=== PATIENT | male | born 2005 | race Two or more races ===

== ENCOUNTER 2025-05-04 10:21 | Emergency (ER) | payer MEDICAID, OTHER ==
[~2025-05-04] VITALS: Ht 172.7 cm; Wt 74.3 kg
--- NOTE | 2025-05-04 10:55 | ED.PDOC ---
History of Present Illness HPI Comments 19-year-old male presents to the ER with no prior medical history associated to chief complaint of neck pain. Patient reports on having sharp pain to his neck radiating to the left shoulder for the past day. Patient states I possibly pulled some muscle. Patient states he cracked his neck a lot and thought maybe he might have strained something denies any actual injury. He works as a oil transport driver. Denies any numbness or tingling. Denies chills, fever, N/V/D, SOB, CP. Chief Complaint: Neck Pain Time Seen by MD: 10:55 Reviewed Notes: Nurses Notes, Medications, Allergies Allergies: Coded Allergies: NO KNOWN ALLERGIES (Unverified , 05/04/25) Information Source: Patient Mode of Arrival: Ambulatory Severity: Moderate Timing: Hours Duration: Since onset, Hours Prehospital treatment: None Past Medical History PAST MEDICAL HISTORY: Denies Surgical History: Denies all surgeries Family History Family History: Reviewed,noncontributory to illness, Unknown Social History Smoker: Non-Smoker Alcohol: Denies ETOH Use Drugs: Denies Drug Use Lives In: Home Constitutional: denies: chills, diaphoresis, fatigue, fever, malaise, sweats, weakness, others EENTM: denies: blurred vision, double vision, ear bleeding, ear discharge, ear drainage, ear pain, ear ringing, eye pain, eye redness, hearing loss, mouth pain, mouth swelling, nasal discharge, nose bleeding, nose congestion, nose pain, photophobia, tearing, throat pain, throat swelling, voice changes, others Respiratory: denies: cough, hemoptysis, orthopnea, SOB at rest, shortness of breath, SOB with excertion, stridor, wheezing, others Cardiovascular: denies: chest pain, dizzy spells, diaphoresis, Dyspnea on exertion, edema, irregular heart beat, left arm pain, lightheadedness, palpitations, PND, syncope, others Gastrointestinal: denies: abdomen distended, abdominal pain, blood streaked bowels, constipated, diarrhea, dysphagia, difficulty swallowing, hematemesis, melena, nausea, poor appetite, poor fluid intake, rectal bleeding, rectal pain, vomiting, others Genitourinary: denies: burning, dysuria, flank pain, frequency, hematuria, incontinence, penile discharge, penile sore, pain, testicle pain, testicle swelling, urgency, others Neurological: denies: dizziness, fainting, headache, left sided numbness, left sided weakness, numbness, paresthesia, pre-existing deficit, right sided numbness, right sided weakness, seizure, speech problems, tingling, tremors, weakness, others Musculoskeletal: reports: muscle pain, muscle stiffness, neck pain; denies: back pain, gout, joint pain, joint swelling, others Integumetry: denies: bruises, change in color, change in hair/nails, dryness, laceration, lesions, lumps, rash, wounds, others Allergic/Immunocompromised: denies: Difficulty Healing, Frequent Infections, Hives, Itching, others Hematologic/Lymphatic: denies: anemia, blood clots, easy bleeding, easy bruising, swollen glands, others Endocrine: denies: excessive hunger, excessive sweating, excessive thirst, excessive urination, flushing, intolerance to cold, intolerance to heat, unexplained weight gain, unexplained weight loss, others Psychiatric: denies: anxiety, bipolar disorder, depression, hopeless, panic disorder, schizophrenia, sleepless, suicidal, others All Other Systems: Reviewed and Negative Physical Exam General Appearance: No Apparent Distress, Normal HEENT: Normal ENT Inspection, Pharynx Normal, TMs Normal Neck: Limited Range of Motion, Normal, Normal Inspection, Tender Lateral, Other (Pain over the left paracervical muscles.) Respiratory: Chest Non-Tender, Lungs Clear, No Accessory Muscle Use, No Respiratory Distress, Normal Breath Sounds Cardiovascular: No Edema, No JVD, No Murmur, No Gallop, Normal Peripheral Pulses, Regular Rate/Rhythm Breast Exam: Deferred Gastrointestinal: No Organomegaly, Non Tender, No Pulsatile Mass, Normal Bowel Sounds, Soft Genitalia: Deferred Pelvic: Deferred Rectal: Deferred Extremities: No calf tenderness, Normal capillary refill, Normal inspection, Normal range of motion, Non-tender, No pedal edema Musculoskeletal : Apperance: Normal Neurologic: Alert, biometrics head II-XII nml as Tested, No Motor Deficits, Normal Affect, Normal Mood, No Sensory Deficits Cerebellar Function: Normal Reflexes: Normal Skin: Dry, Normal Color, Warm Lymphatic: No Adenopathy Was a procedure done? Was a procedure done?: No Differential Dx Considerations may include: Fracture versus slipped as X-Ray, Labs, Meds, VS Vital Signs Date Time Temp Pulse Resp B/P (MAP) Pulse Ox O2 Delivery O2 Flow Rate FiO2 05/04/25 10:22 98.6 65 15 120/55 96 98.6 X-Ray, Labs, Meds, VS Comment Patient seen and examined by me. Patient is having some muscle spasm on the left side of his cervical aspect of his neck. No injury no evidence or indication for x-rays or imaging. Patient will be given a shot of Toradol here and sent home with anti-inflammatories and a muscle relaxer I have also instructed him to use heat alternating with ice which will also help. He was advised that he can not use the muscle relaxer while at work.. Time of 1ST Reevaluation: 11:25 Reevaluation 1ST: Unchanged Time of 2ND Reevaluation: 12:08 Reevaluation 2ND: Improved Patient Education/Counseling: Diagnosis, Treatment, Prognosis Family Education/Counseling: No Family Present SEPSIS Sepsis Screen Date sepsis recognized/suspect: May 04, 2025 Time Sepsis recognized/suspect: 1024 Recent Procedure: No On Antibiotic Therapy: No Respiratory Rate >20: No Heart Rate >90: No Temp<36 C (96.8 F) or >38.3 C: No SBP <90 or MAP <65 mmHG: No New Acute Mental Status Change: No Is the patient on CPAP, BIPAP,: No Vital Signs Date Time Temp Pulse Resp B/P (MAP) Pulse Ox O2 Delivery O2 Flow Rate FiO2 05/04/25 10:22 98.6 65 15 120/55 96 98.6 Departure 1 Departure Time of Disposition: 12:30 Impression: Primary Impression: Cervical paraspinous muscle spasm Additional Impression: Spasm of cervical paraspinous muscle Disposition: 01 HOME / SELF CARE / HOMELESS Condition: Good Additional Instructions: Alternate heat and ice to your neck Try to stand against the wall and stretch out your back with good posture to help stretch those muscles Take the Motrin starting tomorrow to help with pain Okay to take the muscle relaxer but you can not drive with it e-Prescriptions Cyclobenzaprine Hcl (Cyclobenzaprine Hcl) 10 Mg Tab 10 MG PO BID for 5 Days, #10 TAB Prov: AJIT GODWIN DIETETICS PROFESSOR 05/04/25 Ibuprofen Micronized (Ibuprofen) 600 Mg Tab 600 MG PO Q6HPRN PRN for 5 Days, #20 TAB Prov: AJIT GODWIN 05/04/25 Discharged With: Self Critical Care Note Critical Care Time?: No Stability Stability form required: No I personally scribed for ER ([email or web address]) on 05/04/25 at 10:55. Electronically submitted by Matias Burris ([email or web address]). ER May 04, 2025 10:55 AJIT GODWIN DIETETICS PROFESSOR May 04, 2025 12:11
[2025-05-04] MEDS ORDERED: IBUP1TAB5 PO (12:11)
[2025-05-04] MEDS ORDERED: CYCL-839 PO (12:11)
[2025-05-04] MEDS: KETOROLAC TROMETH 60MG/2ML VIAL IM ONE (12:15)
[2025-05-04 12:25] VITALS: BP 122/63; PULSE 64; RESP 16; TEMP 98.1; O2SAT 96
== END 2025-05-04 12:51 | disposition home or self-care (01) ==
LOC: ER 10:21
DX: M62.830 Muscle spasm of back (principal); M62.838 Other muscle spasm; M25.512 Pain in left shoulder
CPT/HCPCS: 96372; 99283; J1885

== ENCOUNTER 2025-05-08 03:52 | Emergency (ER) | payer MEDICAID ==
[~2025-05-08] VITALS: Ht 177.8 cm; Wt 72.5 kg
[~2025-05-08 03:52] MED LIST: CYCL-839 PO; IBUP1TAB5 PO
[2025-05-08 04:29] LABS: Hematocrit 47.2 % (41.0-53.0); Hemoglobin 15.8 g/dL (13.5-17.5); Mean Corpuscular Hemoglobin 29.4 pg (28.0-32.0); Mean Corpuscular Volume 88.0 fL (80.0-100.0); Nucleated Red Blood Cells % 0.0 %
[2025-05-08 04:30] VITALS: BP 118/88; PULSE 65; RESP 16; TEMP 97.7; O2SAT 98
--- NOTE | 2025-05-08 04:34 | ED.PDOC ---
GI ASSESSMENT HPI Comments 19 year old male presents to the ED with a chief complaint of nausea/vomiting onset 1 day. Patient has been experiencing nausea/vomiting as well as epigastric pain and chills for the past day. Patient noticed symptoms worsened this morning, came to ED. Denies any PMHx as well as fever, diarrhea, dizziness, chest pain, shortness of breath, cough, cold, congestion, hematemesis, dysuria. No other symptoms or modifying factors present at this time. Chief Complaint: Nausea/Vomiting Time Seen by MD: 04:30 Reviewed Notes: Medications, Allergies Allergies: Coded Allergies: Amoxicillin (Verified Allergy, Unknown, 05/08/25) Home Meds Active Scripts Loperamide Hcl (Imodium) 2 Mg Cp, 2 MG PO Q6HP PRN, #30 CAP Prov:YOMI VARGAS MD 05/08/25 Ondansetron HCl (Ondansetron Hydrochloride) 8 Mg Tab, 8 MG PO Q6HP PRN, #30 TAB Prov:YOMI VARGAS MD 05/08/25 Cyclobenzaprine Hcl (Cyclobenzaprine Hcl) 10 Mg Tab, 10 MG PO BID for 5 Days, #10 TAB Prov:AJIT GODWINP 05/04/25 Ibuprofen Micronized (Ibuprofen) 600 Mg Tab, 600 MG PO Q6HPRN PRN for 5 Days, #20 TAB Prov:AJIT GODWIN MACHINE MAINTENANCE SERVICER 05/04/25 Information Source: Patient Mode of Arrival: Ambulatory Timing: Days Duration: Since onset Prehospital treatment: None Quality: Cramping Severity: Moderate Recent: None Recent Hx of: None Pain Location: Epigastric Modifying Factors: Nothing Associated sign and symptoms: Nausea, Vomiting, Abdominal Pain Past Medical History PAST MEDICAL HISTORY: Denies Surgical History: Denies all surgeries Family History Family History: Reviewed,noncontributory to illness, Unknown Social History Smoker: Non-Smoker Alcohol: Denies ETOH Use Drugs: Denies Drug Use Lives In: Home Constitutional: reports: chills; denies: diaphoresis, fatigue, fever, malaise, sweats, weakness, others EENTM: denies: blurred vision, double vision, ear bleeding, ear discharge, ear drainage, ear pain, ear ringing, eye pain, eye redness, hearing loss, mouth pain, mouth swelling, nasal discharge, nose bleeding, nose congestion, nose pain, photophobia, tearing, throat pain, throat swelling, voice changes, others Respiratory: denies: cough, hemoptysis, orthopnea, SOB at rest, shortness of breath, SOB with excertion, stridor, wheezing, others Cardiovascular: denies: chest pain, dizzy spells, diaphoresis, Dyspnea on exertion, edema, irregular heart beat, left arm pain, lightheadedness, palpitations, PND, syncope, others Gastrointestinal: reports: abdominal pain, nausea, vomiting; denies: abdomen distended, blood streaked bowels, constipated, diarrhea, dysphagia, difficulty swallowing, hematemesis, melena, poor appetite, poor fluid intake, rectal bleeding, rectal pain, others Genitourinary: denies: burning, dysuria, flank pain, frequency, hematuria, incontinence, penile discharge, penile sore, pain, testicle pain, testicle swelling, urgency, others Neurological: denies: dizziness, fainting, headache, left sided numbness, left sided weakness, numbness, paresthesia, pre-existing deficit, right sided numbness, right sided weakness, seizure, speech problems, tingling, tremors, weakness, others Musculoskeletal: denies: back pain, gout, joint pain, joint swelling, muscle pain, muscle stiffness, neck pain, others Integumetry: denies: bruises, change in color, change in hair/nails, dryness, laceration, lesions, lumps, rash, wounds, others Allergic/Immunocompromised: denies: Difficulty Healing, Frequent Infections, Hives, Itching, others Hematologic/Lymphatic: denies: anemia, blood clots, easy bleeding, easy bruising, swollen glands, others Endocrine: denies: excessive hunger, excessive sweating, excessive thirst, excessive urination, flushing, intolerance to cold, intolerance to heat, unexplained weight gain, unexplained weight loss, others Psychiatric: denies: anxiety, bipolar disorder, depression, hopeless, panic disorder, schizophrenia, sleepless, suicidal, others All Other Systems: Reviewed and Negative Physical Exam General Appearance: Normal HEENT: Normal ENT Inspection, Pharynx Normal, TMs Normal Neck: Full Range of Motion, Non-Tender, Normal, Normal Inspection Respiratory: Chest Non-Tender, Lungs Clear, No Accessory Muscle Use, No Respiratory Distress, Normal Breath Sounds Cardiovascular: No Edema, No JVD, No Murmur, No Gallop, Normal Peripheral Pulses, Regular Rate/Rhythm Breast Exam: Deferred Gastrointestinal: No Organomegaly, Non Tender, No Pulsatile Mass, Normal Bowel Sounds, Soft Genitalia: Deferred Pelvic: Deferred Rectal: Deferred Extremities: No calf tenderness, Normal capillary refill, Normal inspection, Normal range of motion, Non-tender, No pedal edema Musculoskeletal : Apperance: Normal Neurologic: Alert, business support specialist II-XII nml as Tested, No Motor Deficits, Normal Affect, Normal Mood, No Sensory Deficits Cerebellar Function: Normal Reflexes: Normal Skin: Dry, Normal Color, Warm Lymphatic: No Adenopathy Was a procedure done? Was a procedure done?: No GI differential Dx Differential Diagnosis: Appendicitis, Bowel Obstruction, Constipation, Diverticular disease, Gastritis/PUD, Gastroenteritis, Pancreatitis, Electrolyte Imbalance, Food Poisoning, Other X-Ray, Labs, Meds, VS Vital Signs Date Time Temp Pulse Resp B/P (MAP) Pulse Ox O2 Delivery O2 Flow Rate FiO2 05/08/25 04:30 97.7 65 16 118/88 (98) 98 97.7 05/08/25 04:30 Room Air* 0 21 05/08/25 03:54 98.9 66 18 124/63 100 98.9 Lab Test 05/08/25 04:13 Range/Units White Blood Count 9.0 4.4-10.8 10^3/uL Red Blood Count 5.36 4.5-5.90 10^6/uL Hemoglobin 15.8 13.5-17.5 g/dL Hematocrit 47.2 41.0-53.0 % Mean Corpuscular Volume 88.0 80.0-100.0 fL Mean Corpuscular Hemoglobin 29.4 28.0-32.0 pg Mean Corpuscular Hemoglobin Concent 33.4 32.0-36.0 g/dL Red Cell Distribution Width 12.7 11.8-14.3 % Platelet Count 236 140-450 10^3/uL Mean Platelet Volume 9.3 6.9-10.8 fL Neutrophils (%) (Auto) 72.8 37.0-80.0 % Lymphocytes (%) (Auto) 21.3 10.0-50.0 % Monocytes (%) (Auto) 5.0 0.0-12.0 % Eosinophils (%) (Auto) 0.4 0.0-7.0 % Basophils (%) (Auto) 0.5 0.0-2.0 % Neutrophils # (Auto) 6.6 1.6-8.6 10 ^3/uL Lymphocytes # (Auto) 1.9 0.4-5.4 10 ^3/uL Monocytes # (Auto) 0.5 0-1.3 10 ^3/uL Eosinophils # (Auto) 0 0-0.8 10 ^3/uL Basophils # (Auto) 0 0-0.2 10 ^3/uL Nucleated Red Blood Cells 0.0 % Sodium Level 141 136-145 mmol/L Potassium Level 3.8 3.5-5.1 mmol/L Chloride Level 104 98-107 mmol/L Carbon Dioxide Level 26 20-31 mmol/L Anion Gap 11 5-15 Blood Urea Nitrogen < 5 L 9-23 mg/dL Creatinine 1.04 0.700-1.30 mg/dL Glomerular Filtration Rate Calc 105 >90 mL/min BUN/Creatinine Ratio 4.8 L 10.0-20.0 Serum Glucose 129 H 74-106 mg/dL Calcium Level 9.7 8.7-10.4 mg/dL Magnesium Level 2.2 1.6-2.6 mg/dL Total Bilirubin 1.2 H 0.2-1.0 mg/dL Aspartate Amino Transferase (AST) 21 13-40 U/L Alanine Aminotransferase (ALT) 20 7-40 U/L Alkaline Phosphatase 67 46-116 U/L Total Protein 8.0 5.7-8.2 g/dL Albumin 4.9 H 3.2-4.8 g/dL Current Medications Medications (Trade) Dose Ordered Sig/Bill Route Start Time Stop Time Status Last Admin Metoclopramide HCl (Reglan Injection) 10 mg ONCE ONCE IV 05/08/25 04:15 05/08/25 04:16 DC 05/08/25 04:37 Sodium Chloride 1,000 ml @ 1,000 mls/hr Q1H ONCE IV 05/08/25 04:15 05/08/25 05:14 DC 05/08/25 04:40 Acetaminophen (Tylenol Tablet) 1,000 mg ONCE ONCE PO 05/08/25 04:15 05/08/25 04:16 DC 05/08/25 04:38 Time of 1ST Reevaluation: 05:00 Reevaluation 1ST: Unchanged Patient Education/Counseling: Diagnosis, Treatment, Prognosis Family Education/Counseling: No Family Present SEPSIS Sepsis Screen Date sepsis recognized/suspect: May 08, 2025 Time Sepsis recognized/suspect: 353 Recent Procedure: No On Antibiotic Therapy: No Respiratory Rate >20: No Heart Rate >90: No Temp<36 C (96.8 F) or >38.3 C: No SBP <90 or MAP <65 mmHG: No New Acute Mental Status Change: No Is the patient on CPAP, BIPAP,: No Vital Signs Date Time Temp Pulse Resp B/P (MAP) Pulse Ox O2 Delivery O2 Flow Rate FiO2 05/08/25 04:30 97.7 65 16 118/88 (98) 98 97.7 05/08/25 04:30 Room Air* 0 21 05/08/25 03:54 98.9 66 18 124/63 100 98.9 Laboratory Tests Test 05/08/25 04:13 White Blood Count 9.0 10^3/uL (4.4-10.8) Medications Medications Dose Ordered Sig/Bill Route Start Time Stop Time Status Last Admin Dose Admin Acetaminophen 1,000 mg ONCE ONCE PO 05/08/25 04:15 05/08/25 04:16 DC 05/08/25 04:38 Metoclopramide HCl 10 mg ONCE ONCE IV 05/08/25 04:15 05/08/25 04:16 DC 05/08/25 04:37 Sodium Chloride 1,000 ml @ 1,000 mls/hr Q1H ONCE IV 05/08/25 04:15 05/08/25 05:14 DC 05/08/25 04:40 Departure 1 Departure Time of Disposition: 05:00 Impression: Primary Impression: Nausea vomiting and diarrhea Disposition: 01 HOME / SELF CARE / HOMELESS Condition: Stable e-Prescriptions Loperamide Hcl (Imodium) 2 Mg Cp 2 MG PO Q6HP PRN, #30 CAP Prov: YOMI VARGAS MD 05/08/25 Ondansetron HCl (Ondansetron Hydrochloride) 8 Mg Tab 8 MG PO Q6HP PRN, #30 TAB Prov: YOMI VARGAS MD 05/08/25 Discharged With: Self Critical Care Note Critical Care Time?: No Stability Stability form required: No I personally scribed for YOMI VARGAS MD ([email or web address]) on 05/08/25 at 04:34. Electronically submitted by Cinthia Avila ([email or web address]). YOMI VARGAS MD May 08, 2025 04:34
[2025-05-08] MEDS: METOCLOPRAMIDE HCL 5MG/ml INJ 2ml VIAL IV ONE (04:37)
[2025-05-08] MEDS: ACETAMINOPHEN 325 MG TAB PO ONE (04:38)
[2025-05-08] MEDS: SODIUM CHLORIDE 0.9% 1,000 ML IV ONE (04:40)
[2025-05-08 04:44] LABS: Alanine Aminotransferase 20 U/L (7-40); Alkaline Phosphatase 67 U/L (46-116); Anion Gap 11 (5-15); Calcium 9.7 mg/dL (8.7-10.4); Carbon Dioxide 26 mmol/L (20-31); Chloride 104 mmol/L (98-107); Magnesium 2.2 mg/dL (1.6-2.6); Potassium 3.8 mmol/L (3.5-5.1); Sodium 141 mmol/L (136-145); Total Protein 8.0 g/dL (5.7-8.2)
[2025-05-08 04:46] LABS: Albumin 4.9 g/dL (3.2-4.8); BUN/Creatinine Ratio 4.8 (10.0-20.0); Bilirubin, Total 1.2 mg/dL (0.2-1.0); Blood Urea Nitrogen < 5 mg/dL (9-23); Glucose 129 mg/dL (74-106)
[2025-05-08] MEDS ORDERED: ONDA-180 PO (05:00)
[2025-05-08] MEDS ORDERED: LOPE2CAP16 PO (05:02)
== END 2025-05-08 05:33 | disposition home or self-care (01) ==
LOC: ER 03:52
DX: R11.2 Nausea with vomiting, unspecified (principal); R19.7 Diarrhea, unspecified; Z88.0 Allergy status to penicillin; Z79.899 Other long term (current) drug therapy
CPT/HCPCS: 36415; 80053; 83735; 85025; 96361; 96374; 99283; J2765; J7030